=== PATIENT | female | born 1975 | race Caucasian/White ===

== ENCOUNTER → 2016-12-04 13:37 | Observation (INO) ==
[2016-12-04 11:04] LABS: Bilirubin,Urine Negative (Negative); Blood,Urine Negative (Negative); Color,Urine Yellow (Yellow); Glucose,Urine (UA) Normal (Normal); Ketones,Urine Trace mg/dL (Negative); Leukocyte Esterase,Urine Negative (Negative); Nitrite,Urine Negative (Negative); Protein,Urine Negative (Neg-Trace); Specific Gravity,Urine 1.016 (1.010-1.025); Urobilinogen,Urine Normal (Normal)
[2016-12-04 11:06] LABS: Clarity,Urine Slightly Hazy (Clear)
[2016-12-04 11:10] LABS: Amphetamine Screen,Urine Negative ng/mL (Cutoff=1000); Barbiturate Screen,Urine Negative ng/mL (Cutoff=200); Benzodiazepines Screen,Urine Negative ng/mL (Cutoff=200); Cannabinoid Screen,Urine Negative ng/mL (Cutoff = 50); Cocaine Screen,Urine Negative ng/mL (Cutoff= 300); Opiate Screen,Urine Negative ng/mL (Cutoff=300); Phencyclidine Screen,Urine Negative ng/mL (Cutoff=25)
--- NOTE | 2016-12-04 11:45 | OB/GYN Progress Note ---
Date of Encounter: 12/04/16 Time of Encounter: 11:41 - Assessment and Plan (1) 28 weeks gestation of Current Visit: Yes Status: Acute (2) Vaginal discharge during in second trimester Current Visit: Yes Status: Acute Fern and nitrazine negative vaginosis panel sent and is negative. Discharged home with labor precautions. (3) Cramping affecting , antepartum Current Visit: Yes Status: Acute cervix fingertip and firm. FFN completed, but some bleeding noticed Subjective - Subjective Interval history: 28+3 presents to triage with complaints of cramping, and leaking of fluid. Pt states she has noticed cramping over the last couple days and over the week has had to wear a pantyliner due to discharge and leaking. Denies sexual intercourse, Reports good movement, denies vaginal bleeding or leaking of fluid. Pt with history of per term delivery at 34 weeks with last . Antepartum ROS: loss of fluid, movement normal, contractions, no vaginal bleeding Objective - Vital Signs Vital Signs: Intake and Output 12/03/16 12/04/16 12/04/16 23:59 07:59 15:59 Other: Weight 80.6 kg Patient Weight 12/04/16 23:59 Weight 80.6 kg - Exam FHR: auscultation normal FHR comments: Baseline 135 Auscultation: bilateral: normal Abdomen: Present: normal appearance, soft, gravid Cervical dilation: fingertip/firm/long - Labs Labs: Abnormal lab results Ur Specimen Adequacy See below A 12/04/16 10:50 Urine Ketones Trace mg/dL (Negative) H 12/04/16 10:50
[2016-12-04 12:43] LABS: Candida DNA Not Detected (Not Detect); Gardnerella DNA Not Detected (Not Detect); Trichomonas DNA Not Detected (Not Detect)
== END | disposition home or self-care (01) ==
LOC: 1NENULAB
PROVIDERS: ADMIT Obstetrics & Gynecology; ATTEND Obstetrics & Gynecology

== ENCOUNTER 2016-12-30 17:57 | Observation (INO) ==
[2016-12-30 18:51] LABS: Bilirubin,Urine Small (Negative); Blood,Urine Negative (Negative); Clarity,Urine Turbid (Clear); Color,Urine Dark Yellow (Yellow); Glucose,Urine (UA) Normal (Normal); Ketones,Urine 40 mg/dL (Negative); Leukocyte Esterase,Urine Moderate (Negative); Nitrite,Urine Negative (Negative); Protein,Urine Trace mg/dL (Neg-Trace); Specific Gravity,Urine 1.022 (1.010-1.025); Urobilinogen,Urine Normal (Normal)
[2016-12-30 18:52] LABS: Squamous Epithelial Cell,Urine Many per lpf (None-Few)
[2016-12-30 18:56] LABS: Amphetamine Screen,Urine Negative ng/mL (Cutoff=1000); Barbiturate Screen,Urine Negative ng/mL (Cutoff=200); Benzodiazepines Screen,Urine Negative ng/mL (Cutoff=200); Cannabinoid Screen,Urine Negative ng/mL (Cutoff = 50); Cocaine Screen,Urine Negative ng/mL (Cutoff= 300); Opiate Screen,Urine Negative ng/mL (Cutoff=300); Phencyclidine Screen,Urine Negative ng/mL (Cutoff=25)
[2016-12-30 19:07] LABS: Bacteria,Urine Few per hpf (None-Few)
--- NOTE | 2016-12-30 19:11 | Discharge Summary ---
Date of Encounter: 12/30/16 Time of Encounter: 19:11 - Discharge Diagnosis (1) Cramping affecting , antepartum Priority: Secondary Status: Acute Comments: Admit for monitoring and evaluation SVE closed/thick/-1 (2) 32 weeks gestation of Priority: Primary Status: Acute Comments: labor evaluation - Discharge Medications Home Medications: Cetirizine HCl [Zyrtec] 10 mg PO DAILY #15 capsule 12/02/16 [Rx] Feosol 1 tab PO DAILY 12/04/16 [History] Fluticasone Propionate [Flonase Allergy Relief] 9.9 ml NS DAILY 12/04/16 [ History] Vits #90/Iron Fum/FA [ Formula Tablet] 1 each PO DAILY [History] Reglan 1 tab PO PRN PRN 12/04/16 [History] Keflex 1 tab PO BID 12/30/16 [History] Allergies/Adverse Reactions: 3 Allergy/AdvReac Type Severity Reaction Status Date / Time Sulfa (Sulfonamide Allergy Rash Verified 12/30/16 18:24 Antibiotics) Erythromycin Base AdvReac Vomiting Verified 12/30/16 18:24 Data Procedures and tests throughout hospitalization: Laboratory Tests 12/30/16 12/30/16 18:40 18:40 Urine Color Dark Yellow Urine Clarity Turbid A Urine pH 6.0 Ur Specific Rueter 1.022 Urine Protein Trace Urine Glucose (UA) Normal Urine Ketones 40 H Urine Blood Negative Urine Nitrite Negative Urine Bilirubin Small H Urine Urobilinogen Normal Ur Leukocyte Esterase Moderate H Urine Microscopic RBC 5-15 H Urine Microscopic WBC 5-15 H Ur Squamous Epith Cells Many H Urine Bacteria Few Ur Culture Indicated? YES A Urine Opiates Screen Negative Ur Barbiturates Screen Negative Ur Phencyclidine Scrn Negative Ur Amphetamines Screen Negative U Benzodiazepines Scrn Negative Urine Cocaine Screen Negative U Marijuana (THC) Screen Negative Labs on day of discharge: Labs from last 24 hours 12/30/16 12/30/16 18:40 18:40 Urine Color Dark Yellow Urine Clarity Turbid A Urine pH 6.0 Ur Specific Rueter 1.022 Urine Protein Trace Urine Glucose (UA) Normal Urine Ketones 40 H Urine Blood Negative Urine Nitrite Negative Urine Bilirubin Small H Urine Urobilinogen Normal Ur Leukocyte Esterase Moderate H Urine Microscopic RBC 5-15 H Urine Microscopic WBC 5-15 H Ur Squamous Epith Cells Many H Urine Bacteria Few Ur Culture Indicated? YES A Urine Opiates Screen Negative Ur Barbiturates Screen Negative Ur Phencyclidine Scrn Negative Ur Amphetamines Screen Negative U Benzodiazepines Scrn Negative Urine Cocaine Screen Negative U Marijuana (THC) Screen Negative Date of admission: 12/30/16 17:57 Discharging clinician: Esther Teague Anticipated date of discharge: 12/30/16 - Patient Status Disposition: Home, Self-Care Condition: Good Functional capacity at discharge: independent ambulation - Discharge Instructions Follow Up With: Willis Mares MD [Partnered Physician] - - Diet and Activity Activity: increase activity as tolerated Diet: advance to your usual diet 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 Pt reports decreased movement, denies leakage of fluid and bleeding. Pt states she hasn't been feeling well all weekend long, has been vomiting and complains of sinus congestion. Pt reports she is on Keflex currently and is also taking Zyrtec, Benadryl, and Reglan to control her symptoms. Urine results returned dehydrated and patient instructed to increase her fluid intake. Also has not had 28 week labs drawn. Phone encounter sent to Dr. Mares and patient informed to make sure she tells the office staff at her next visit. She has a history of GDM with last . SVE closed/thick/-1 today. Time Attestation: Total time spent providing and/or coordinating discharge services: Time Spent: Less than 30 minutes Exam - Constitutional General appearance IM: A&O X 3, pleasant, no acute distress - Respiratory Respiratory exam: Present: CTAB - Cardiovascular Cardiovascular exam IM: Present: RRR, +S1, +S2 - GI/Abdominal GI/Abdominal exam IM: normal bowel sounds, soft - Rectal Rectal exam: deferred - Extremities Exam Extremities exam IM: Present: full ROM, normal capillary refill, normal inspection Additional comments: Pt reports she has nerve damage in her feet. - Neurological Exam Neurological exam: alert, normal gait, oriented X3 - Other Additional findings: 130 bpm, moderate variability, + 15x15 accels, no decels. Category I tracing. Uterine irritability noted. - VTE Reasons for not Prescribing Prophylaxis: Treatment not Indicated - Low risk for VTE
== END 2016-12-30 19:25 | disposition home or self-care (01) ==
LOC: 1NENULAB
PROVIDERS: ADMIT Obstetrics & Gynecology; ATTEND Obstetrics & Gynecology

== ENCOUNTER 2017-02-16 00:11 | Inpatient (IN) ==
[2017-02-15 19:42] LABS: Amphetamine Screen,Urine Negative ng/mL (Cutoff=1000); Barbiturate Screen,Urine Negative ng/mL (Cutoff=200); Benzodiazepines Screen,Urine Negative ng/mL (Cutoff=200); Cannabinoid Screen,Urine Negative ng/mL (Cutoff = 50); Cocaine Screen,Urine Negative ng/mL (Cutoff= 300); Opiate Screen,Urine Negative ng/mL (Cutoff=300); Phencyclidine Screen,Urine Negative ng/mL (Cutoff=25)
[2017-02-15 21:02] LABS: Basophils % 0.2 %; Eosinophils # 0.1 K/mcL (0.0-0.6); Eosinophils % 0.3 %; Hematocrit 34.4 % (35.3-44.9); Hemoglobin 11.7 g/dL (11.5-15.4); Immature Granulocytes % 0.9 % (0-4); Lymphocytes % 18.7 %; Mean Corpuscular Hemoglobin 30.5 pg (28.0-33.3); Mean Corpuscular Volume 89.6 fL (83.0-100.0); Mean Platelet Volume 9.5 fL (9.4-12.4); Monocytes # 1.1 K/mcL (0.0-1.3); Neutrophils # 11.8 K/mcL (1.6-8.9); Platelet Count 294 K/mcL (140-400); Red Blood Count 3.84 M/mcL (3.82-4.97); Red Cell Distribution Width 13.4 % (11.5-14.5); Segmented Neutrophils % 72.9 %
--- NOTE | 2017-02-15 21:51 | OB/GYN History & Physical ---
Date of Encounter: 02/15/17 Time of Encounter: 21:45 Assessment and Plan (1) 38 weeks gestation of Current visit: Yes Status: Acute Patient with painful uterine contractions and h/o during last . -Plan for after midnight. -FHT reactive and reassuring -Patient's membranes are intact, patient's reports of leakage likely secondary to previous cervical check. History of Present Illness Chief complaint: Contractions HPI: Ms. Barber is a 41 year old female at 38 weeks [address] [facility] with painful contractions. Ms. Barber's last resulted in an emergency and Ms. Barber was scheduled for repeat on Friday. Ms. Barber appears anxious. She states she is having some vaginal bleeding and leaking of fluid. She reports painful contraction. She denies MARTE, epigastric pain, visual disturbances, CP, SOB, N&V. GBS negative Hep B surface antigen Nonreactive HIV nonreactive Treponema Pallidum negative Rubella immune Varicella immune A+, negative antibodies Past Med Surg Social Fam HX - Past Medical History Attestation: Yes The following information was validated with the patient. Source: patient Medical history: other (h/o gestational diabetes during 3rd ) Psychiatric history: no psych history - Past Surgical History Surgical History: other (tonsillectomy, sinus surgery, spinal surgery) - Social History Smoking Status: Former smoker Smokeless Tobacco Status: No Alcohol use: none Drug use: none - Family History Mother Adopted: No Living Status: Hx Family Cardiac Disorders: No Hx Family Respiratory Disorders: No Hx Family Cancer: Yes (cervical cancer) Hx Family GI Disorders: No Hx Family Endocrine Disorder: No Hx Family Neuromuscular Disorders: No Hx Family Neurologic Disorders: No Hx Family HEENT Disorders: No Hx Family Autoimmune Disorders: No Obstetrical History - Pregnancies : 4 Para: 3 Term: 2 : 1 Ab's: 0 Livin - History/Complications History/Complications: Gestational Diabetes during 3rd Medications and Allergies Cetirizine HCl [Zyrtec] 10 mg PO DAILY #15 capsule 12/02/16 [Rx] Fluticasone Propionate [Flonase Allergy Relief] 9.9 ml NS DAILY 12/04/16 [ History] Vits #90/Iron Fum/FA [ Formula Tablet] 1 each PO DAILY [History] Reglan 1 tab PO PRN PRN 12/04/16 [History] Albuterol Inhaler 2 puff .ROUTE TID 02/15/17 [History] Gabapentin [Neurontin] 1 tab PO TID 02/15/17 [History] 3 Allergy/AdvReac Type Severity Reaction Status Date / Time Sulfa (Sulfonamide Allergy Rash Verified 02/15/17 19:39 Antibiotics) Erythromycin Base AdvReac Vomiting Verified 02/15/17 19:39 Review of System OB All systems PM: reviewed and no additional remarkable complaints except as stated - Constitutional Constitutional ROS IM: as per HPI, no fever(s), no lethargy - Cardiovascular Cardiovascular: no chest pain, no dyspnea - Respiratory Respiratory: cough (Patient recovering from bronchitis), no dyspnea, no dyspnea on exertion - Gastrointestinal Gastrointestinal: as per HPI, no abdominal pain, no change in bowel habits, no constipation, no diarrhea - Neurological Nerological: no headache(s) Exam - Constitutional Constitutional: well developed, well nourished, moderate distress (Patient anxious) - HEENT HEENT: Normocephaly, Mucus Membranes Moist - Lungs Respiratory exam: rhonchi (mild bilaterally, moving air well.) - Cardiovascular Cardiovascular exam: RRR, +S1, +S2 - Abdomen Abdomen: Present: bowel sounds normal, gravid, non tender - Extremities Extremities exam: radial pulses palpable and symmetrical - Cervix Dilation: 1 Effacement: 70 Station: -1 - Comments Comments: FHT baseline 125 bpm, moderate variability, 15x15 accelerations Results Result Diagrams: 02/15/17 20:50 Abnormal lab results WBC 16.2 K/mcL (4.3-11.1) H 02/15/17 20:50 Hct 34.4 % (35.3-44.9) L 02/15/17 20:50 Neutrophils # 11.8 K/mcL (1.6-8.9) H 02/15/17 20:50 All other labs normal. - VTE Reasons for not Prescribing Prophylaxis: Treatment not Indicated - Low risk for VTE
--- NOTE | 2017-02-15 23:47 | Anesthesia Evaluation PreOp ---
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) Other Medical History: Diabetes Type II (gestational diabetes with last (not her current )) Anesthesia History: No Prior Anesthetic Complications, Past Anesthesia (C-S under spinal initially and then general anesthesia; spinal surgery (involving thoracic spine), etc) Alcohol Use: none Drug use: none Medications and Allergies Cetirizine HCl [Zyrtec] 10 mg PO DAILY #15 capsule 12/02/16 [Rx] Fluticasone Propionate [Flonase Allergy Relief] 9.9 ml NS DAILY 12/04/16 [ History] Vits #90/Iron Fum/FA [ Formula Tablet] 1 each PO DAILY [History] Reglan 1 tab PO PRN PRN 12/04/16 [History] Albuterol Inhaler 2 puff .ROUTE TID 02/15/17 [History] Gabapentin [Neurontin] 1 tab PO TID 02/15/17 [History] 3 Allergy/AdvReac Type Severity Reaction Status Date / Time Sulfa (Sulfonamide Allergy Rash Verified 02/15/17 19:39 Antibiotics) Erythromycin Base AdvReac Vomiting Verified 02/15/17 19:39 - Meds/Allergy Pre-op Review Medications Reviewed: Yes Allergies Reviewed: Yes Beta Blockers on Current Med List: No Anesthesia Results - Labs 02/15/17 20:50 Anesthesia Exam Weight: 80 kg NPO (# of Hours): > 8 hrs - HEENT Pupil (Motor): Pupils equal, EOMI Mallampati: II Teeth: Normal Oral Opening: Greater than 3 - SENIOR APPLICATION SECURITY CONSULTANT LOC: Oriented - Cardiac Rhythm: Regular Murmur: None - Pulmonary Breath Sounds: bilateral Clear Respiratory Effort: Symmetrical Anesthesia Assess/Plan ASA Score: 2 Modified Feliberto Scale for Level of Consciousness: Cooperative, oriented, and tranquil Anesthetic Plan: Regional (spinal) Monitoring Plan: Standard Monitors Recovery Plan: PACU
[~2017-02-16 00:11] MED LIST: *HR* HYDROmorphone (PF) 1 MG/ML SYRINGE IVP PRN; *HR* Nalbuphine 20 MG/ML AMPUL IVP STA; Famotidine 20 MG/2 ML VIAL IVP PRN; Metoclopramide 10 MG/2 ML VIAL IVP PRN; Naloxone 0.4 MG/ML INJ IVP PRN; Ondansetron 4 MG/2 ML VIAL IVP PRN; Ringers Solution, Lactated 1,000 ML ONE
[2017-02-16] MEDS ORDERED: ceFAZolin 2,000 MG in Water for inj. (sterile) 20 ML IVP ONE (00:15)
[2017-02-16] MEDS ORDERED: Ringers Solution, Lactated 1,000 ML IVC SCH (00:15)
[2017-02-16] MEDS ORDERED: *HR* FentaNYL (PF) 100 MCG/2 ML VIAL ONE (00:35)
[2017-02-16] MEDS ORDERED: *HR* Morphine Sulfate/PF 5 MG/10 ML AMPUL ONE (00:35)
[2017-02-16] MEDS ORDERED: CeFAZolin Premix DUPLEX 2,000 MG/50 ML BAG IVPB ONE (01:00)
[2017-02-16] MEDS ORDERED: Ringers Solution, Lactated 1,000 ML ONE ×2 (01:22→01:39)
[2017-02-16] MEDS ORDERED: EPHEDrine 50 MG/ML VIAL ONE (01:35)
[2017-02-16] MEDS ORDERED: *HR* Oxytocin 10 UNIT/ML VIAL IM ONE (01:49)
[2017-02-16] MEDS ORDERED: Ondansetron 4 MG/2 ML VIAL ONE (02:01)
[2017-02-16] MEDS ORDERED: *HR* HYDROmorphone (PF) 1 MG/ML SYRINGE ONE (02:45)
--- NOTE | 2017-02-16 03:03 | OB/GYN Procedure Note ---
Section - Date of procedure: 02/16/17 Preop diagnosis: desires repeat , desires sterilization Post-op diagnosis: same Procedure: repeat low transverse, bilateral tubal ligation Surgeon: Gray Bee Estimated blood loss (cc): 500 Anesthesiologist: Kathy Allen Topology Teacher: Caden Holloway Anesthesia Type: Spinal section complications: none Disposition: PACU Specimens: Right tube segment, Left tube segment - Infant (s) A Delivery Date: 02/16/17 Delivery Time: 01:56 Presentation: vertex Gender: Female Gram Weight: 2.625 kg at 1 minute: 8 at 5 minutes: 9 Shoulder Dystocia: not encountered Specimens collected: cord blood Placenta: spontaneous Cord: 3 umbilical vessels - Narrative Narrative: Patient's to 11-year-old 4 para 3 female presented to labor and delivery at 38 weeks and 6 days gestation complaining of frequent contractions have been lasting all day and were now stronger in intensity. Upon arrival she denied bleeding fluid. Tractions were quite strong she did require Nubain. Because this decision was made to proceed with repeat section she also expressed continued desire for tubal ligation. Description procedure: Patient was taken operating room where spinal anesthesia was administered she is prepped draped in usual sterile fashion. Lateral strand with Cox catheter. Scalpel was used to make a Pfannenstiel skin incision which were sharply taken down the rectus fascia. Rectus fascia incised midline fascial incision was extended bilaterally. Peritoneum was entered sharply and peritoneal incision was extended bilaterally. Bladder blade was placed and the bladder was adherent high up to approximately the mid portion and lower uterus. The bladder scar tissue was taken down without difficulty. Scalpel was then used to make a low transverse uterine incision which was extended bluntly bilaterally. Membranes were ruptured to clear fluid. Infant was then delivered from vertex presentation. There was no nuchal cord. Cord was clamped and cut and was handed nurse personnel were weight was found to be 5 lbs. 13 oz. Apgars of 8 at 1 minute and 9 at 5 minutes. Placenta was delivered manually without difficulty and uterine cavity was massaged free of all residual tissue. Uterus then closed 0 Vicryl running lock stitch. Second imbricating layer was placed over the first without difficulty. Fallopian tubes were identified approximately 3 cm segment each fallopian tube was grasped with Mendham clamp and an avascular area. Oh plain catgut sutures placed through the mesosalpinx approximately 3 cm segment of each fallopian tube was double ligated. This was then transected and hemostasis was ensured. Again irrigation was performed hemostasis was assured. Fascia was closed 0 Vicryl in a running manner. Again irrigation was performed hemostasis was ensured skin edges reapproximated with 4-0 Vicryl. All sponge and instruments counts are correct patient was taken recovery room good condition.
[2017-02-16] MEDS: *HR* HYDROmorphone (PF) 1 MG/ML SYRINGE IVP PRN ×4 (03:13→08:37)
[2017-02-16] MEDS ORDERED: Oxytocin 20 units/ LR 1000 mL 20 UNIT/1,000 ML BAG IVC ONE (03:29)
[2017-02-16] MEDS ORDERED: Sennosides 8.6 MG TABLET PO PRN (05:16)
[2017-02-16] MEDS ORDERED: Oxytocin 20 units/ LR 1000 mL 20 UNIT/1,000 ML BAG IVC SCH (05:16)
[2017-02-16] MEDS ORDERED: Ondansetron 4 MG/2 ML VIAL IVP PRN (05:16)
[2017-02-16] MEDS ORDERED: Rho Immune Globulin 1,500 UNIT SYRINGE IM ONE (05:16)
[2017-02-16] MEDS ORDERED: Metoclopramide 10 MG/2 ML VIAL IVP PRN (05:16)
[2017-02-16] MEDS: *HR* OxyCODONE/APAP 5/325 TABLET PO PRN ×3 (05:42→12:12)
[2017-02-16] MEDS: Gabapentin 300 MG CAPSULE PO SCH ×3 (08:37→21:59)
[2017-02-16] MEDS: Fluticasone Propionate Nasal 50 MCG/SPRAY BOTTLE NS SCH (08:37)
[2017-02-16] MEDS: Loratadine 10 MG TABLET PO SCH (08:38)
[2017-02-16] MEDS: Albuterol 2.5 MG/3 ML NEBULIZER IH PRN ×3 (10:15→22:10)
[2017-02-16] MEDS: Ibuprofen 600 MG TABLET PO PRN ×3 (10:32→22:42)
[2017-02-16] MEDS: *HR* OxyCODONE/APAP 10/325 TABLET PO PRN ×2 (17:35→23:20)
[2017-02-16] MEDS: Simethicone 80 MG TAB.CHEW PO PRN (23:49)
[2017-02-17] MEDS: Ibuprofen 600 MG TABLET PO PRN ×4 (04:31→23:47)
[2017-02-17 05:39] LABS: Basophils % 0.3 %; Eosinophils # 0.1 K/mcL (0.0-0.6); Eosinophils % 0.8 %; Hematocrit 26.2 % (35.3-44.9); Immature Granulocytes % 0.8 % (0-4); Lymphocytes # 2.4 K/mcL (0.6-4.6); Lymphocytes % 16.7 %; Mean Corpuscular HGB Conc 33.2 g/dL (31.6-35.5); Mean Corpuscular Hemoglobin 30.3 pg (28.0-33.3); Mean Corpuscular Volume 91.3 fL (83.0-100.0); Mean Platelet Volume 9.5 fL (9.4-12.4); Monocytes # 1.1 K/mcL (0.0-1.3); Monocytes % 7.8 %; Neutrophils # 10.5 K/mcL (1.6-8.9); Platelet Count 222 K/mcL (140-400); Red Blood Count 2.87 M/mcL (3.82-4.97); Red Cell Distribution Width 13.6 % (11.5-14.5); Segmented Neutrophils % 73.6 %
[2017-02-17 05:40] LABS: Hemoglobin 8.7 g/dL (11.5-15.4)
[2017-02-17] MEDS: *HR* OxyCODONE/APAP 10/325 TABLET PO PRN ×5 (05:50→22:47)
[2017-02-17] MEDS: Prenatal Vit/FA 1 EACH TABLET PO SCH (08:30)
[2017-02-17] MEDS: Gabapentin 300 MG CAPSULE PO SCH ×3 (08:30→22:47)
[2017-02-17] MEDS: Loratadine 10 MG TABLET PO SCH (08:30)
[2017-02-17] MEDS: Fluticasone Propionate Nasal 50 MCG/SPRAY BOTTLE NS SCH (08:36)
--- NOTE | 2017-02-17 08:52 | OB/GYN Progress Note ---
Date of Encounter: 02/17/17 Time of Encounter: 08:50 - Assessment and Plan (1) S/P section Current Visit: Yes Status: Acute Pt meeting day 1 milestones. Await flatus. (2) Mother currently breast-feeding Current Visit: Yes Status: Acute consult today. (3) anemia Current Visit: Yes Status: Acute Pt denies s/sx anemia today. Continue to monitor. Subjective - Subjective Interval history: Pt reports pain is well controlled with 10mg oxycodone. She is ambulating and voiding and tolerating a regular diet. She is not yet passing flatus. Patient reports: appetite normal, voiding normally, pain well controlled (pain controlled with 10mg oxycodone and motrin), ambulating normally : doing well Objective - Vital Signs Latest vital signs: Vital Signs Temp Pulse Resp BP Pulse Ox 02/17/17 07:30 98.0 F 65 16 108/66 02/17/17 04:10 97.9 F 84 16 106/68 99 02/17/17 00:23 98.2 F 80 14 111/66 96 02/16/17 22:10 17 97 02/16/17 20:11 98.1 F 72 14 113/67 96 02/16/17 17:09 18 98 02/16/17 16:00 97.9 F 73 16 109/73 97 02/16/17 12:15 98.1 F 82 16 114/72 98 02/16/17 10:15 16 95 Intake and Output 02/16/17 02/17/17 02/17/17 23:59 07:59 15:59 Intake Total 1500 / 1500 120 / 120 Output Total 850 / 850 1300 / 1300 Balance -850 / -850 200 / 200 120 / 120 Intake: Oral 1500 / 1500 120 / 120 Output: Urine 850 / 850 1300 / 1300 Other: Meal Breakfast Percent of Meal Consumed 100% - Exam Lungs: left: wheezes, right: normal Chest: Normal S1, Normal S2 Extremities: Present: normal, edema (mild bilaterally) Abdomen: Present: soft, tenderness (appropriately tender to palpation) Uterus: Present: firm Fundal Height: 1 (U/1) - Labs Labs: Laboratory Results - last 24 hr 02/17/17 05:07 WBC 14.2 H RBC 2.87 L Hgb 8.7 L D Hct 26.2 L MCV 91.3 MCH 30.3 MCHC 33.2 RDW 13.6 Plt Count 222 MPV 9.5 Immature Gran % 0.8 Seg Neutrophils % 73.6 Lymphocytes % 16.7 Monocytes % 7.8 Eosinophils % 0.8 Basophils % 0.3 Neutrophils # 10.5 H Lymphocytes # 2.4 Monocytes # 1.1 Eosinophils # 0.1 Basophils # 0.0
[2017-02-17] MEDS: Simethicone 80 MG TAB.CHEW PO PRN ×3 (09:23→18:44)
[2017-02-17] MEDS ORDERED: FLUARIX QUAD 2017-18 36MOS UP/PF 0.5 ML SYRINGE IM ONE (10:47)
[2017-02-17] MEDS: Albuterol 2.5 MG/3 ML NEBULIZER IH PRN ×2 (10:55→18:45)
[2017-02-18] MEDS: Albuterol 2.5 MG/3 ML NEBULIZER IH PRN ×2 (01:38→09:26)
[2017-02-18] MEDS: *HR* OxyCODONE/APAP 10/325 TABLET PO PRN ×3 (02:52→10:46)
[2017-02-18] MEDS: Ibuprofen 600 MG TABLET PO PRN (05:47)
[2017-02-18 07:57] VITALS: BP 116/67
--- NOTE | 2017-02-18 09:51 | Discharge Summary ---
Date of Encounter: 02/18/17 Time of Encounter: 09:46 - Discharge Diagnosis (1) Breast feeding status of mother Priority: Secondary Status: Acute Comments: support prn (2) S/P section Priority: Primary Status: Acute Comments: continue postop/ care discharge home today follow up in 2 weeks for incision check - Discharge Medications Prescriptions: Ibuprofen [Motrin] 600 mg PO Q6HR PRN #60 tablet PRN Reason: Cramping Breast Pump [BREAST PUMP] 1 each .ROUTE AD #1 each Oxycodone HCl/Acetaminophen [Percocet 5-325 mg Tablet] 1 each PO Q4H PRN #30 tablet PRN Reason: Pain Home Medications: Cetirizine HCl [Zyrtec] 10 mg PO DAILY #15 capsule 12/02/16 [Rx] Fluticasone Propionate [Flonase Allergy Relief] 9.9 ml NS DAILY 12/04/16 [ History] Albuterol Inhaler 2 puff .ROUTE TID 02/15/17 [History] Gabapentin [Neurontin] 1 tab PO TID 02/15/17 [History] Breast Pump [BREAST PUMP] 1 each .ROUTE AD #1 each 02/18/17 [Rx] Docusate [Colace] 100 mg PO BID capsule 02/18/17 [Rx] GuaiFENesin/Dextromethorphan [Robitussin/Dm] 10 ml PO Q6HR PRN udc 02/18/17 [Rx ] Ibuprofen [Motrin] 600 mg PO Q6HR PRN #60 tablet 02/18/17 [Rx] Oxycodone HCl/Acetaminophen [Percocet 5-325 mg Tablet] 1 each PO Q4H PRN #30 tablet 02/18/17 [Rx] Vit/FA 1 each PO DAILY tablet 02/18/17 [Rx] Allergies/Adverse Reactions: 3 Allergy/AdvReac Type Severity Reaction Status Date / Time Sulfa (Sulfonamide Allergy Rash Verified 02/15/17 19:39 Antibiotics) codeine AdvReac Itching Verified 02/17/17 18:44 Erythromycin Base AdvReac Vomiting Verified 02/15/17 19:39 Data Procedures and tests throughout hospitalization: Laboratory Tests 02/15/17 02/15/17 02/17/17 19:29 20:50 05:07 WBC 16.2 H 14.2 H RBC 3.84 2.87 L Hgb 11.7 8.7 L D Hct 34.4 L 26.2 L MCV 89.6 91.3 MCH 30.5 30.3 MCHC 34.0 33.2 RDW 13.4 13.6 Plt Count 294 222 MPV 9.5 9.5 Immature Gran % 0.9 0.8 Seg Neutrophils % 72.9 73.6 Lymphocytes % 18.7 16.7 Monocytes % 7.0 7.8 Eosinophils % 0.3 0.8 Basophils % 0.2 0.3 Neutrophils # 11.8 H 10.5 H Lymphocytes # 3.0 2.4 Monocytes # 1.1 1.1 Eosinophils # 0.1 0.1 Basophils # 0.0 0.0 Urine Opiates Screen Negative Ur Barbiturates Screen Negative Ur Phencyclidine Scrn Negative Ur Amphetamines Screen Negative U Benzodiazepines Scrn Negative Urine Cocaine Screen Negative U Marijuana (THC) Screen Negative Date of admission: 02/16/17 00:11 Primary care physician: PCP NONE Consults: 02/16/17 17:47 Consult to Pnp (W&C) [CONS] Routine Reason For Exam: hx drug use Reason for SW Consult: hx of drug use, subutex use Discharging clinician: Esther Teague Anticipated date of discharge: 02/18/17 - Patient Status Disposition: Home, Self-Care Condition: Good Functional capacity at discharge: independent ambulation - Discharge Instructions Follow Up With: NONE,PCP [Primary Care Provider] - Willis Mares MD [Partnered Physician] - - Diet and Activity Activity: increase activity as tolerated Diet: regular diet Hospital Course Procedures: [facility] report reviewed by VALENTIN Hernandez Reason for admission: section Delivery: section Episiotomy: none Laceration: none Other procedures: tubal ligation complications: none Discharge diagnosis: IUP at term delivered Lyman baby: female (breast feeding) Time Attestation: Total time spent providing and/or coordinating discharge services: Time Spent: Less than 30 minutes - VTE Reasons for not Prescribing Prophylaxis: Treatment not Indicated - Low risk for VTE Documentation of Mechanical Device: Intermittent pneumatic compression device Exam - Constitutional Vitals: Temp Pulse Resp BP Pulse Ox 98.0 F 79 16 116/67 99 02/18/17 07:35 02/18/17 07:35 02/18/17 09:28 02/18/17 07:35 02/18/17 09:28 General appearance IM: A&O X 3, pleasant, answers questions appropriately - Respiratory Respiratory exam: Present: CTAB - Cardiovascular Cardiovascular exam IM: Present: RRR, +S1, +S2 - GI/Abdominal GI/Abdominal exam IM: normal bowel sounds Incision: normal, dry, intact - Uterine Tone: Firm Uterus Position: 2 Fingers Below Umbilicus, Midline - Extremities Exam Extremities exam IM: Present: full ROM, normal capillary refill, normal inspection - Neurological Exam Neurological exam: alert, oriented X3, reflexes normal
[2017-02-18] MEDS: Prenatal Vit/FA 1 EACH TABLET PO SCH (10:44)
[2017-02-18] MEDS: Loratadine 10 MG TABLET PO SCH (10:44)
[2017-02-18] MEDS: Gabapentin 300 MG CAPSULE PO SCH (10:45)
[2017-02-18] MEDS ORDERED: Rho Immune Globulin 1,500 UNIT SYRINGE IM ONE (10:45)
[2017-02-18] MEDS ORDERED: FLUARIX QUAD 2017-18 36MOS UP/PF 0.5 ML SYRINGE IM ONE (10:45)
[2017-02-18] MEDS: Simethicone 80 MG TAB.CHEW PO PRN (10:45)
[2017-02-18] MEDS: Fluticasone Propionate Nasal 50 MCG/SPRAY BOTTLE NS SCH (10:47)
== END 2017-02-18 11:00 | disposition home or self-care (01) | DRG 540 ==
LOC: 1NENULAB → 1NENUOBS 05:15
PROVIDERS: ADMIT Obstetrics & Gynecology; ATTEND Obstetrics & Gynecology